=== PATIENT | male | born 1990 | race American Indian/Alaskan Native ===

== ENCOUNTER 2020-07-20 13:56 | Emergency (ER) | payer SELFPAY ==
[2020-07-20 15:08] VITALS: BP 122/66
--- NOTE | 2020-07-20 16:23 | XRay Report ---
CHEST PA AND LATERAL VIEWS INDICATION: chest pain. COMPARISON: None. FINDINGS: Support devices: None. Heart: Within normal limits. Lungs/Pleura: No acute pulmonary or pleural findings. IMPRESSION: 1. No acute findings. Signer Name: Isrrael Monahan MD Signed: 07/20/2020 4:19 PM Workstation Name: [id number]
--- NOTE | 2020-07-28 10:59 | Electrocardiograph Report ---
[facility] Test Date: 2020-07-20 Test Time: 15:15:17 Pat Name: NARCISA ONTIVEROS Department: Room: Gender: M [employer]: LONG : 1990 Requested By: CYNDEE GUSTAFSON Order Number: [id number] Reading MD: Vipul Duenas Measurements Intervals [place] Rate: 79 P: 78 ND: 151 QRS: -12 QRSD: 86 T: 12 QT: 362 QTc: 416 Interpretive Statements Sinus rhythm Low voltage, precordial leads No previous ECG available for comparison Electronically Signed On 07-28-2020 10:59:16 EDT by Vipul Duenas
== END 2020-07-20 16:12 | disposition left against medical advice (07) ==
LOC: ED 13:56
DX: R07.89 Other chest pain (principal); Z53.21 Procedure and treatment not carried out due to patient leaving prior to being seen by health care provider
CPT/HCPCS: 71046; 93005